=== PATIENT | female | born 1965 | race Caucasian/White ===

== ENCOUNTER 2017-11-02 16:37 | Emergency (ER) | END 2017-11-02 19:47 | disposition home or self-care (01) ==

== ENCOUNTER 2018-11-12 08:21 | Emergency (ER) | payer MEDICAID, OTHER ==
[~2018-11-12] VITALS: Ht 165.1 cm; Wt 71.4 kg
[~2018-11-12 08:21] MED LIST: AMOX500C2 PO; CEPH-443 PO; IBUP800T48 PO; NAPR-985 PO; OFLO5DRO7 LEFT EAR; SULF1TAB31 PO; TRAM50TA2 PO
[2018-11-12 08:24] VITALS: Ht 165.1 cm; Wt 71.4 kg
[2018-11-12] MEDS ORDERED: ONDANSETRON 4 MG INJ IV STA (09:17)
[2018-11-12] MEDS ORDERED: KETOROLAC 30 MG INJ IV STA (09:17)
[2018-11-12] MEDS ORDERED: morphine 4 MG/ML VIAL IV STA (09:17)
--- NOTE | 2018-11-12 12:19 | ERD ---
ER Documentation Chief Complaint Chief Complaint left chest pain HPI This is a 53-year-old female complains of 1 week of left-sided chest pain located along the costosternal margin and left mid neck midclavicular anterior chest wall. The pain is worse with movement and when she lays supine. She says is hard to sleep at night because she cannot get comfortable laying on either side of her chest. She has no shortness of breath no diaphoresis no palpitations no nausea no dizziness no exertional pain. Denies any trauma or lifting pushing pulling injury ROS All systems reviewed and are negative except as per history of present illness. Medications Home Meds Discontinued Scripts Sulfamethoxazole/Trimethoprim* (Bactrim Ds* Tablet) 1 Each Tablet, 1 TAB PO BID, #14 TAB Prov:RAFFI CARRIZALES DO 11/02/17 Cephalexin* (Keflex*) 500 Mg Capsule, 500 MG PO QID for 7 Days, CAP Prov:RAFFI CARRIZALES DO 11/02/17 Ibuprofen* (Motrin*) 800 Mg Tab, 800 MG PO Q6H PRN for PAIN AND OR ELEVATED TEMP, #30 TAB Prov:RAFFI CARRIZALES DO 11/02/17 Tramadol HCl (Tramadol HCl) 50 Mg Tablet, 50 MG PO Q4 PRN for PAIN, #20 TAB Prov:LISA DE JESUS PA-C 05/13/16 Ofloxacin Otic (Ofloxacin Otic) 5 Ml Drops, 10 DROP LEFT EAR DAILY for 7 Days, #1 BOTTLE Prov:LISA DE JESUS PA-C 05/13/16 Amoxicillin* (Amoxicillin*) 500 Mg Cap, 500 MG PO TID for 7 Days, CAP Prov:LISA DE JESUS PA-C 05/13/16 Naproxen* (Naprosyn*) 500 Mg Tablet, 500 MG PO BID PRN for PAIN AND/OR INFLAMMATION, #30 TAB Prov:DAQUAN MANCIA MD 03/01/16 Naproxen* (Naprosyn*) 500 Mg Tablet, 500 MG PO BID PRN for PAIN AND/OR INFLAMMATION, #30 TAB Prov:FELICE THAO PA-C 11/02/15 Allergies Allergies: Coded Allergies: No Known Allergy (Unverified , 11/12/18) PMhx/Soc Medical and Surgical Hx: pt denies Medical Hx, pt denies Surgical Hx History of Surgery: Yes (TUBAL LIGATION, ) Anesthesia Reaction: No Hx Neurological Disorder: No Hx Respiratory Disorders: No Hx Cardiac Disorders: Yes (HYPERCHOLESTEROLEMIA) Hx Psychiatric Problems: No Hx Miscellaneous Medical Probl: No Hx Alcohol Use: No Hx Substance Use: No Hx Tobacco Use: No Smoking Status: Never smoker FmHx Family History: No coronary disease Physical Exam Vitals Vital Signs Date Temp Pulse Resp B/P (MAP) Pulse Ox O2 O2 Flow FiO2 Time Delivery Rate 11/12/18 71 18 123/73 98 Room Air 11:32 (90) 11/12/18 98.1 77 18 114/67 100 08:24 (83) Physical Exam Const: Well-developed, well-nourished Head: Atraumatic, normocephalic Eyes: Normal Conjunctiva, PERRLA, EOMI, normal sclera, no nystagmus ENT: Normal External Ears, Nose and Mouth, moist mucus membranes. Neck: Full range of motion. No meningismus, no lymphadenopathy. Resp: Clear to auscultation bilaterally, no wheezing, rhonchi, rales Cardio: Regular rate and rhythm, no murmurs, S1 S2 present, there is moderate to severe reproducible chest wall tenderness to the left costosternal margin along ribs 4 5 and 6 also on the midclavicular anterior chest wall on the same ribs. Pain is also reproducible with movement of the left upper extremity Abd: Soft, non tender x 4, non distended. Normal bowel sounds, no guarding or rebound, no pulsitile abdominal masses or bruits Skin: No petechiae or rashes, no ecchymosis , no maculopapular rash Back: No midline or flank tenderness Ext: No cyanosis, or edema, FROM x 4, normal inspection, neurovascularly intact x 4 Neur: Awake and alert, STR 5/5 x 4, sensation intact x 4, no focal findings, cerebellum intact Psych: Normal Mood and Affect Result Diagram: 11/12/18 0840 11/12/18 0840 Results 24 hrs Laboratory Tests Test 11/12/18 08:40 White Blood Count 6.4 10^3/ul Red Blood Count 4.67 10^6/ul Hemoglobin 13.9 g/dl Hematocrit 41.8 % Mean Corpuscular Volume 89.5 fl Mean Corpuscular Hemoglobin 29.8 pg Mean Corpuscular Hemoglobin Concent 33.3 g/dl Red Cell Distribution Width 12.3 % Platelet Count 276 10^3/UL Mean Platelet Volume 10.7 fl Immature Granulocytes % 0.300 % Neutrophils % 68.3 % Lymphocytes % 22.0 % Monocytes % 7.9 % Eosinophils % 0.9 % Basophils % 0.6 % Nucleated Red Blood Cells % 0.0 /100WBC Immature Granulocytes # 0.020 10^3/ul Neutrophils # 4.3 10^3/ul Lymphocytes # 1.4 10^3/ul Monocytes # 0.5 10^3/ul Eosinophils # 0.1 10^3/ul Basophils # 0.0 10^3/ul Nucleated Red Blood Cells # 0.0 10^3/ul Sodium Level 141 mmol/L Potassium Level 3.9 mmol/L Chloride Level 102 mmol/L Carbon Dioxide Level 28 mmol/L Anion Gap 11 Blood Urea Nitrogen 14 mg/dl Creatinine 0.66 mg/dl Est Glomerular Filtrat Rate mL/min > 60 mL/min Glucose Level 128 mg/dl Calcium Level 9.4 mg/dl Troponin I < 0.012 ng/ml Current Medications Medications Dose Sig/Simon Start Time Status Last (Trade) Ordered Route PRN Stop Time Admin Dose Reason Admin Morphine 4 mg ONCE STAT 11/12/18 DC 11/12/18 Sulfate IV 09:17 09:39 (morphine) 11/12/18 09:19 Ondansetron 4 mg ONCE STAT 11/12/18 DC 11/12/18 HCl (Zofran IV 09: 09:36 Inj) 11/12/18 09:19 Ketorolac 30 mg ONCE STAT 11/12/18 DC 11/12/18 Tromethamine IV 09:17 09:37 (Toradol) 11/12/18 09:19 Procedures/MDM Ordering MD: BELÉN SIMMONS DO Location: E/R Room/Bed: PROCEDURE: XR Chest. CLINICAL INDICATION: Chest pain . TECHNIQUE: Single frontal chest x-ray. COMPARISON: None. FINDINGS: The lungs are clear of acute infiltrates, edema, effusions, or masses.. The cardiomediastinal silhouette is unremarkable. The osseous structures are intact. IMPRESSION: No acute cardiopulmonary disease. RPTAT: GG .Len Nieto MD, Date Time Electronically viewed and signed by .Len Nieto MD, on 11/12/2018 09:33 .L/ CC: BELÉN SIMMONS DO [id number] EKG: Rate/Rhythm: Normal Sinus Rhythm,NL intervals QRS, ST, QT: NORMAL FL, QRS, prolonged QT] Impression: Abnormal EKG Patient's chest pain is musculoskeletal in nature. Gave her warning signs to return. Will discharge home with Motrin and Marshall Departure Diagnosis: Primary Impression: Chest wall pain Condition: Stable BELÉN SIMMONS DO Nov 12, 2018 12:19
[2018-11-12] MEDS ORDERED: TRAM50TA2 PO (12:20)
[2018-11-12] MEDS ORDERED: IBUP800T48 PO (12:20)
[2018-11-12 12:38] VITALS: BP 122/74; PULSE 77; RESP 18
== END 2018-11-12 12:41 | disposition home or self-care (01) ==
LOC: E/R 08:21
DX: R07.89 Other chest pain (principal)
CPT/HCPCS: 36415; 71045; 80048; 84484; 85025; 93005; 96374; 96375; J1885; J2270; J2405; Z7502